=== PATIENT | female | born 1940 | race Caucasian/White ===

== ENCOUNTER 2021-01-16 18:25 | Inpatient (IN) | payer OTHER, BC ==
[~2021-01-16] VITALS: Ht 165.1 cm; Wt 88.6 kg
[2021-01-16] VITALS (7 sets, daily range): BP systolic 112–137; BP diastolic 47–62
[2021-01-16 23:15] LABS: HEMATOCRIT 34.3 % (37.0-47.0); HEMOGLOBIN 11.3 gm/dL (12.0-15.0); MCH 29.1 pg (26.0-34.0); MCHC 32.9 g/dL (28.0-37.0); MCV 88.6 fL (80.0-100.0); PLATELET COUNT 402 thou/uL (150-400); RBC 3.87 mil/uL (4.20-5.00); RDW 13.2 % (10.5-14.5); WBC 13.4 thou/uL (4.0-11.0)
[2021-01-16 23:26] LABS: CALCIUM 8.4 mg/dL (8.5-10.1); CREATININE 0.8 mg/dL (0.6-1.0); POTASSIUM 4.6 mmol/L (3.5-5.1)
[2021-01-16 23:31] LABS: ALBUMIN 1.9 g/dL (3.4-5.0); MAGNESIUM 2.4 mg/dL (1.8-2.4); TOTAL BILIRUBIN 0.5 mg/dL (0.2-1.0); TOTAL PROTEIN 6.1 g/dL (6.4-8.2)
[2021-01-16 23:32] LABS: APTT 25.9 Seconds (24.5-32.8); INR 1.01
[2021-01-16 23:54] LABS: BE(vivo) 4.2 mmol/L (-2 to +3); HCO3 27.8 mmol/L (22.0-26.0); PCO2 37.7 mmHg (35.0-45.0); pH 7.485 (7.360-7.450); sO2 92.5 % (92.0-98.0)
[2021-01-17] VITALS (43 sets, daily range): BP systolic 117–146; BP diastolic 46–75
[2021-01-17 00:16] LABS: ABSOLUTE NEUTROPHILS 12.1 thou/uL (1.4-8.2)
[2021-01-17 00:17] LABS: ANISOCYTOSIS 1+; PLATELET ESTIMATE INCREASED; POIKILOCYTOSIS 1+
[2021-01-17 05:06] LABS: ALBUMIN 1.9 g/dL (3.4-5.0); CALCIUM 8.3 mg/dL (8.5-10.1); CREATININE 0.7 mg/dL (0.6-1.0); POTASSIUM 4.3 mmol/L (3.5-5.1); TOTAL BILIRUBIN 0.5 mg/dL (0.2-1.0)
[2021-01-17 05:22] LABS: HEMATOCRIT 33.5 % (37.0-47.0); HEMOGLOBIN 11.3 gm/dL (12.0-15.0); MCH 29.7 pg (26.0-34.0); MCHC 33.7 g/dL (28.0-37.0); MCV 88.2 fL (80.0-100.0); RBC 3.8 mil/uL (4.20-5.00); RDW 12.7 % (10.5-14.5); WBC 14.4 thou/uL (4.0-11.0)
[2021-01-17 05:49] LABS: URINE BILIRUBIN NEGATIVE (Negative); URINE BLOOD NEGATIVE (Negative); URINE CLARITY CLEAR; URINE COLOR YELLOW; URINE GLUCOSE-RANDOM* NEGATIVE (Negative); URINE KETONES NEGATIVE (Negative); URINE LEUKOCYTES NEGATIVE (Negative); URINE NITRITE NEGATIVE (Negative); URINE PROTEIN (DIPSTICK) TRACE (Negative); URINE UROBILINOGEN 0.2 E.U./dl (0.2-1.0)
--- NOTE | 2021-01-17 15:43 | NUR ---
A RIGHT #6F TRIPLE LUMEN CENTRAL LINE WAS PLACED PER HOSPITAL POLICY AFTER A BEDSIDE TIMEOUT WAS COMPLETED. THE LINE WAS 25CM AND DIFFICULT TO ADVANCE. XRAY SHOWING LINE COILED. A OTW ATTEMPT WAS DONE USING STERILE TECHNIQUE AND LINE DROPED INTO THE DISTAL SVC AND NOW IN GOOD POSITION FOR USE
--- NOTE | 2021-01-17 17:07 | NUR ---
CENTRAL LINE WAS STARTED TODAY AND TPN WILL BE STARTED TONIGHT. CARDIOLOGY CONSULTED FOR AFIB AND PO CARDIZEM DOSE INCREASED. WILL CONTINUE TO ASSESS.
[2021-01-18] VITALS (31 sets, daily range): BP systolic 109–155; BP diastolic 40–75
[2021-01-18 06:32] LABS: CALCIUM 8.2 mg/dL (8.5-10.1); CREATININE 0.7 mg/dL (0.6-1.0)
[2021-01-18 09:45] LABS: MAGNESIUM 2.1 mg/dL (1.8-2.4); PHOSPHORUS 3.2 mg/dL (2.6-4.7)
--- NOTE | 2021-01-18 10:21 | NUR ---
PT'S GRANDDAUGHTER CORNELIUS CALLED AND RN GAVE PT UPDATE. YASH AND CORNELIUS TALKED ABOUT TRYING TO GET A FACETIME CALL THIS AFTERNOON BETWEEN 1-2 PM.
--- NOTE | 2021-01-18 11:46 | HC ---
[facility] [place] [address] CONSULTATION Name: ETELVINA SIERRA Room #: 237-P [facility] IN M.R.#: [id number] Admission: 01/16/21 Attend Phys: José Luis Simons MD Discharge: Date of : 44 Report #: [id number] THIS REPORT FOR: cc: FAM - Family physician unknown FAM - Family physician unknown Ubaldo Dunn MD ~ DATE OF SERVICE: 01/17/2021 INFECTIOUS DISEASE CONSULTATION ATTENDING PHYSICIAN: Dr. Keys. REASON FOR EVALUATION: COVID-19 infection complicated by pneumonitis, ARDS. HISTORY OF PRESENT ILLNESS: Chart reviewed. The patient examined. A 80-year-old woman with extensive medical history who was admitted in transfer from [facility] with a diagnosis of COVID-19 infection, this has been complicated by pneumonitis and pending requirement for ventilatory support. X-ray evidence of ARDS with hypoxemia. She is currently on BiPAP 100%, appears to be at least moderately encephalopathic, difficult to obtain additional history through the record and had apparently nausea with diarrhea as well as exacerbation of her what appears to be chronic back pain, was found to have atrial fibrillation with rapid ventricular response as well. Initial laboratory was notable for an albumin of 1.9. Lactic acid 1.9. BNP of 3300. ABGs showed a pO2 of 59 on 100% BiPAP. Urinalysis was generally unremarkable. Blood cultures collected at the time of admission are sterile thus far. Chest x-ray from other facility showed bilateral infiltrates, suspected early ARDS, so empirically started on therapy with vancomycin and cefepime as well as dexamethasone, she had received remdesivir during her roughly 10 day stay at outside hospital. ALLERGIES: None known. CURRENT MEDICATIONS: Include montelukast, atorvastatin, famotidine, cefepime, enoxaparin, vancomycin, diltiazem CD, amlodipine, losartan, ferrous sulfate, duloxetine, dexamethasone, pantoprazole, sucralfate, hydrochlorothiazide, buspirone, levothyroxine. PAST MEDICAL HISTORY: As described above, history of hypertension, reflux, depression, hypothyroidism, COPD, hyperlipidemia, osteoarthritis, iron deficiency anemia, chronic back pain, and macular degeneration. SOCIAL HISTORY: Former smoker. No ethanol, no illicit drug use. FAMILY HISTORY: Noncontributory. [facility] [address] [place] [address] CONSULTATION Name: ETELVINA SIERRA Room #: [address] [place] [address] IN [facility].#: [id number] Admission: 01/16/21 Attend Phys: José Luis Simons MD Discharge: Date of : 44 Report #: [id number] REVIEW OF SYSTEMS: Very limited due to her situation. PHYSICAL EXAMINATION: GENERAL: She appears chronically ill and undernourished. She is in moderate distress. She does arouse. She is oriented at least to person and place. VITAL SIGNS: Temperature 98.8, pulse 116, respirations 19, blood pressure 129/69. SKIN: Warm, dry, no rashes. HEENT: She has a BiPAP in place. She has a normocephalic, appears to have extraocular muscles intact. NECK: Supple. LUNGS: Scattered coarse breath sounds. HEART: Irregular, do not appreciate any murmur. ABDOMEN: Distended, firm. No peritoneal signs. EXTREMITIES: Distal lower extremities, has some edema. No cyanosis. GENITOURINARY AND RECTAL: Deferred. LABORATORY DATA: Blood cultures are negative thus far. Urinalysis unremarkable. TSH 0.032, which is low. Electrolytes: Sodium 144, potassium 4.3, chloride 107, bicarbonate is 30, anion gap of 7, BUN and creatinine 39 and 0.7, glucose of 114. AST of 18, ALT of 28, albumin 1.9. Estimated GFR of 81. CBC: White count of 14.4, H and H 11.3 and 33.5, platelets of 356. ABGs overnight pH 7.485, pCO2 of 37.7, pO2 of 59.0, 100% BiPAP. Fibrinogen 525. ProBNP of 33. Lactic acid 1.9. ASSESSMENT AND PLAN: COVID-19 infection complicated by pneumonitis, respiratory failure with early acute respiratory distress syndrome may have secondary bacterial infections well given the time course. We will continue empiric therapy with antibacterials, corticosteroids. She remains quite tenuous at this point is critically ill. The extent that she would likely require mechanical ventilatory support. She has significant disease burden, prognosis appears guarded. <ELECTRONICALLY SIGNED> By: Ubaldo Dunn MD 01/18/21 1146 0818 Ubaldo Dunn MD /nt
--- NOTE | 2021-01-18 13:37 | NUR ---
Chart review, unable to visit with pt r/t + covid and require bipap, TPN for nutrition. Cm visited with grand daughter nacho. She reported she independent, still working 40 + hours week at [employer] in [place]. Still drives, and manage own medication. If she needs rehab, granddaughter works at skilled rehab facility closer to home and the would be better, closer to home.
--- NOTE | 2021-01-18 13:48 | NUR ---
DR. CABRERA'S OFFICE CALLED PER REQUEST OF DR. MCKENZIE. DR. 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 SPOKE WITH OFFICE STAFF AT DR. CABRERA'S OFFICE AND THEY STATED THEY SPOKE WITH PHYSICIAN AND THAT IT IS OKAY TO USE FULL FACE MASK FOR BIPAP. THEY ALSO STATED THAT THE TEMPORARY LENS HAS BEEN REMOVED AND TO LEAVE THE SUTURE TO LEFT EYE LID IN PLACE.
--- NOTE | 2021-01-18 18:23 | NUR ---
PT HAS USED BIPAP TODAY WITH SMALL BREAKS OF NC FOR AM MEDS. PT TO TIRED TO TAKE AFTERNOON PO MEDS WITH USE OF NC. PT'S O2 SATS REMAIN AROUND 92% AT 70% FIO2. FREQUENT ORAL SWABS PROVIDED TO PT. PT BEGAN GETTING ANXIOUS AND NEW ORDER RECEIVED FOR PRECEDEX GTT. PRECEDEX GTT STARTED AT THIS TIME.
--- NOTE | 2021-01-18 21:33 | NUR ---
ASSUMED CARE OF PATIENT AT 1900. PATIENT REFUSES MEDICATION, ORAL CARE AND WILL NOT TALK. SHE MOANS, BUT WILL NOT SAY WHERE SHE HURTS. DAUGHTER TE CALLED THIS RN AT 2044, THIS RN EDUCATED FAMILY ON ISOLATION PROTOCOLS AND UPDATED TO WHY SHE IS IN THE ICU. FAMILY IS VERY ADAMANT THAT SHE DOES NOT NEED TO BE IN ICU, THAT SHE SHOULD BE IN THE SAME ROOM HER SIGNIFICANT OTHER ON 3W. THIS RN EXPLAINED HIPPA POLICIES. THIS RN CALLED PATIENTS SON FROM PATIENTS CELL PHONE., THEY WERE ALSO EDUCATED ABOUT ISOLATION POLICY. DAUGHTER IN LAW MELISSA VERY UPSET ABOUT ISOLATION POLICY, STATES PATIENT DOES NOT NEED TO BE IN ISOLATION. THIS RN EXPLAINED THAT HOSPITAL POLICY IS SET BY THE CDC AND ADMINISTRATION. THEY ARE VERY UNHAPPY AND DO NOT SEEM TO UNDERSTAND HOW SICK THE PATIENT IS. THIS RN LEFT THE FAMILY ON SPEAKER WITH THE PATIENT AND LET THE FAMILY KNOW THAT THIS RN WAS LEAVING THE ROOM. FAMILY WILL NEED SIGNIFICANT EDUCATION REGARDING HOSPITAL POLICY AND POC GOALS.
[2021-01-19] VITALS (53 sets, daily range): BP systolic 84–195; BP diastolic 44–154
--- NOTE | 2021-01-19 02:53 | NUR ---
ASSUMED CARE OF PATIENT AT 1900. PATIENT VERY ANXIOUS, AGITATED. PRECEDEX TITRATED FOR ANXIETY. C/O PAIN IN HEAD AND BACK. IMPULSIVE, JUMPING OUT OF BED. STATES SHE WANTS TO . EMOTIONAL SUPPORT PROVIDED. ON OPTIFLOW FOR 3 HOURS, BIPAP FOR THE REST OF THIS SHIFT. NOT PROGRESSING TOWARDS POC GOALS.
[2021-01-19 05:29] LABS: HEMATOCRIT 31.5 % (37.0-47.0); HEMOGLOBIN 10.8 gm/dL (12.0-15.0); MCH 29.9 pg (26.0-34.0); MCHC 34.4 g/dL (28.0-37.0); MCV 86.9 fL (80.0-100.0); RBC 3.63 mil/uL (4.20-5.00); RDW 12.9 % (10.5-14.5); WBC 13.1 thou/uL (4.0-11.0)
[2021-01-19 05:38] LABS: MAGNESIUM 1.8 mg/dL (1.8-2.4); PHOSPHORUS 2.5 mg/dL (2.5-4.9)
[2021-01-19 08:31] LABS: CALCIUM 8.1 mg/dL (8.5-10.1); CREATININE 0.7 mg/dL (0.6-1.0); POTASSIUM 4.3 mmol/L (3.5-5.1)
[2021-01-19 13:53] LABS: BE(vivo) -1.8 mmol/L (-2 to +3); HCO3 21.7 mmol/L (22.0-26.0); PCO2 32.9 mmHg (35.0-45.0); PO2 67.3 mmHg (80.0-100.0); pH 7.437 (7.360-7.450); sO2 94.2 % (92.0-98.0)
--- NOTE | 2021-01-19 17:02 | NUR ---
P.T. EVAL PLACED ON HOLD PER DEPT POLICY. REQUEST NEW P.T. ORDERS ONCE PT IS DEEMED TO BE ABLE TO TOLERATE THERAPEUTIC INTERVENTIONS OFF BIPAP.
--- NOTE | 2021-01-19 19:41 | NUR ---
ASSESSMENT CHARTED. PT VERY RESTLESS. PRN ANXIETY AND PAIN MED GIVEN WITH PARTIAL RELIEF. DESART WITH MOVEMENT. SEEN BY DR. MCKENZIE. ORDERS GIVEN TO INTUBATE PT. PT INTUBATED BY DR. MCKENZIE @ 0237. NEW ORDERS NOTED. REPORT PASS ON THE [facility] NURSE.
[2021-01-19 19:52] LABS: BE(vivo) -3.8 mmol/L (-2 to +3); HCO3 19.8 mmol/L (22.0-26.0); PCO2 31.3 mmHg (35.0-45.0); sO2 93.9 % (92.0-98.0)
[2021-01-20] VITALS (78 sets, daily range): BP systolic 74–165; BP diastolic 20–76
[2021-01-20 04:59] LABS: BE(vivo) -2.4 mmol/L (-2 to +3); HCO3 21.5 mmol/L (22.0-26.0); PCO2 34.4 mmHg (35.0-45.0); PO2 66.1 mmHg (80.0-100.0); pH 7.414 (7.360-7.450); sO2 93.5 % (92.0-98.0)
[2021-01-20 05:08] LABS: HEMATOCRIT 31.6 % (37.0-47.0); HEMOGLOBIN 10.7 gm/dL (12.0-15.0); MCH 29.4 pg (26.0-34.0); MCV 86.6 fL (80.0-100.0); RBC 3.65 mil/uL (4.20-5.00); RDW 12.9 % (10.5-14.5); WBC 19.4 thou/uL (4.0-11.0)
[2021-01-20 05:26] LABS: CALCIUM 7.7 mg/dL (8.5-10.1); CREATININE 0.8 mg/dL (0.6-1.0); POTASSIUM 4.3 mmol/L (3.5-5.1)
[2021-01-20 10:06] LABS: ALBUMIN 2.1 g/dL (3.4-5.0); DIRECT BILIRUBIN 0.2 mg/dL (<0.1-0.2); TOTAL BILIRUBIN 0.5 mg/dL (0.2-1.0); TOTAL PROTEIN 5.2 g/dL (6.4-8.2)
--- NOTE | 2021-01-20 10:28 | NUR ---
GRANDDAUGHTER CORNELIUS CALLED AND UPDATED ON PATIENT CONDITION. QUESTIONS ANSWERED. INFORMED OF PLAN OF CARE.
--- NOTE | 2021-01-20 13:57 | NUR ---
Chart review, discussed during los and unite rounds. + COVID. Had to be intubated yesterday evening. nutritional support. No anticipated dc, will cont following as needed for dc needs.
--- NOTE | 2021-01-20 23:56 | NUR ---
ASSUMED CARE OF PATIENT AT 1900. THIS RN CALLED GRANDDAUGHTER CORNELIUS AND UPDATED HER. THIS RN ALSO USED THE HOSPITAL PHONE ON SPEAKER SO THAT SHE COULD TALK TO HER GRANDMA. PATIENT IS EASILY AROUSABLE, COOPERATIVE AND ABLE TO HELP TURN HERSELF WELL FOLLOW ALL COMMANDS. LEVO, CARDIZEM TITRATED TO CONTROL HEARTRATE AND BLOOD PRESSURE.
[2021-01-21] VITALS (91 sets, daily range): BP systolic 86–145; BP diastolic 38–63
[2021-01-21 03:14] LABS: HEMOGLOBIN 9.6 gm/dL (12.0-15.0); MCH 29.1 pg (26.0-34.0); MCV 88.2 fL (80.0-100.0); RBC 3.29 mil/uL (4.20-5.00); RDW 12.9 % (10.5-14.5); WBC 24.3 thou/uL (4.0-11.0)
[2021-01-21 03:25] LABS: CALCIUM 7.1 mg/dL (8.5-10.1); POTASSIUM 3.7 mmol/L (3.5-5.1)
[2021-01-21 04:58] LABS: BE(vivo) -7.1 mmol/L (-2 to +3); HCO3 18.6 mmol/L (22.0-26.0); PCO2 38.2 mmHg (35.0-45.0); PO2 90.1 mmHg (80.0-100.0); pH 7.305 (7.360-7.450); sO2 96.2 % (92.0-98.0)
--- NOTE | 2021-01-21 06:29 | NUR ---
PATIENT'S SBP SOFT THIS AM, DR. WALLIS ORDERED 500CC BOLUS WHICH HELPED FOR A LITTLE WHILE. SHE WANTED TO SEE IF HOLDING OFF ON LEVOPHED WOULD HELP CONTROL BP. NOTIFIED AM BP MEDS HELD. 1058- IVF ORDERED PER DR. WALLIS. ORDER TO START TUBE FEEDS PER CLINICAL QUALITY ASSURANCE SPECIALIST- VITAL HP GOAL OF 50, WITH 250CC FREE WATER FLUSHES. PATIENT REMAINS IN A.FIB WITH SOME ELEVATION DURING THE DAY, PRN METOPROLOL GIVEN WITH SOME EFFECT, BUT ULTIMATELY CARDIZEM GTT STARTED. SEE EMAR.
--- NOTE | 2021-01-21 15:22 | NUR ---
PATIENT PRONED AT 1445. TOLERATED WELL. PATIENT REMAINS ON 70% FIO2, NEW RATE OF 22. VERSED & PROPOFOL INCREASED, SEE EMAR. PT OFF OF CARDIZEM PRIOR TO PRONING.
--- NOTE | 2021-01-21 15:33 | NUR ---
Patient's granddaughter, Annita, updated on patient condition. Notified of proning. Questions answered and notified of changing visitor policy, as of saturday.
--- NOTE | 2021-01-21 17:10 | NUR ---
Dr. Keys notified re: patient confusion, restlessness despite Precedex gtt. Does not want to add any PRN for delirium at this time. PRN Fentanyl IVP ordered.
[2021-01-21 19:31] LABS: BE(vivo) -7.2 mmol/L (-2 to +3); HCO3 19.3 mmol/L (22.0-26.0); PCO2 42.9 mmHg (35.0-45.0); sO2 95.3 % (92.0-98.0)
[2021-01-21 21:26] LABS: CALCIUM 7.3 mg/dL (8.5-10.1); CREATININE 0.9 mg/dL (0.6-1.0); POTASSIUM 3.8 mmol/L (3.5-5.1)
[2021-01-22] VITALS (83 sets, daily range): BP systolic 82–164; BP diastolic 38–64
[2021-01-22 05:06] LABS: BE(vivo) -7.5 mmol/L (-2 to +3); HCO3 19.3 mmol/L (22.0-26.0); PCO2 44.1 mmHg (35.0-45.0); PO2 73.4 mmHg (80.0-100.0); sO2 92.5 % (92.0-98.0)
[2021-01-22 05:07] LABS: pH 7.258 (7.360-7.450)
[2021-01-22 06:37] LABS: HEMATOCRIT 27.7 % (37.0-47.0); HEMOGLOBIN 9.3 gm/dL (12.0-15.0); MCH 29.6 pg (26.0-34.0); MCHC 33.5 g/dL (28.0-37.0); MCV 88.4 fL (80.0-100.0); PLATELET COUNT 284 thou/uL (150-400); RBC 3.13 mil/uL (4.20-5.00); RDW 12.7 % (10.5-14.5); WBC 21.7 thou/uL (4.0-11.0)
[2021-01-22 06:52] LABS: CALCIUM 7.2 mg/dL (8.5-10.1); CREATININE 0.8 mg/dL (0.6-1.0); POTASSIUM 3.5 mmol/L (3.5-5.1); TOTAL BILIRUBIN 0.5 mg/dL (0.2-1.0); TOTAL PROTEIN 4.8 g/dL (6.4-8.2)
[2021-01-22 07:17] LABS: ABSOLUTE NEUTROPHILS 20.8 thou/uL (1.4-8.2); PLATELET ESTIMATE NORMAL
[2021-01-22 11:05] LABS: URINE BILIRUBIN NEGATIVE (Negative); URINE BLOOD NEGATIVE (Negative); URINE CLARITY CLEAR; URINE COLOR YELLOW; URINE GLUCOSE-RANDOM* NEGATIVE (Negative); URINE KETONES NEGATIVE (Negative); URINE LEUKOCYTES-REFLEX NEGATIVE (Negative); URINE NITRITE-REFLEX NEGATIVE (Negative); URINE PROTEIN (DIPSTICK) TRACE (Negative); URINE UROBILINOGEN 0.2 E.U./dl (0.2-1.0)
--- NOTE | 2021-01-22 14:57 | NUR ---
Granddaughter Annita, updated on patient condition and plan of care.
--- NOTE | 2021-01-22 19:27 | NUR ---
ASSUMED CARE OF PATIENT AT 1900. THIS RN CALLED GRANDDAUGHTER TO UPDATE ON PATIENT. ALL QUESTIONS ANSWERED, WILL CALL HER IN THE AM BEFORE SHIFT CHANGE.
[2021-01-23] VITALS (52 sets, daily range): BP systolic 94–140; BP diastolic 33–77
[2021-01-23 05:32] LABS: HEMOGLOBIN 9.1 gm/dL (12.0-15.0); MCH 29.8 pg (26.0-34.0); MCHC 33.7 g/dL (28.0-37.0); MCV 88.5 fL (80.0-100.0); RBC 3.05 mil/uL (4.20-5.00); WBC 19.4 thou/uL (4.0-11.0)
[2021-01-23 05:59] LABS: CALCIUM 7.3 mg/dL (8.5-10.1); CREATININE 0.8 mg/dL (0.6-1.0); POTASSIUM 3.7 mmol/L (3.5-5.1)
[2021-01-23 11:31] LABS: BE(vivo) -8.7 mmol/L (-2 to +3); HCO3 17.9 mmol/L (22.0-26.0); PCO2 41.6 mmHg (35.0-45.0); sO2 79.3 % (92.0-98.0)
[2021-01-23 11:32] LABS: PO2 49.8 mmHg (80.0-100.0); pH 7.252 (7.360-7.450)
--- NOTE | 2021-01-23 12:16 | NUR ---
Dr Zacarias would prefer to bolus tube feed while proning. Recommend 3 cans vital HP during proning hours and 2 additional cans when not proning (5 cans total per day). Continue water flushes 250ml every 6 hr. vital HP cans will not be in stock until 01/24.
--- NOTE | 2021-01-23 12:34 | NUR ---
1232HR - UPDATE PT'S GRANDDAUGHTER CORNELIUS. REPORTED THAT ALL DRIPS ARE AT THE SAME SETTINGS, V/S, VENT SETTINGS, PT CONDITION, AND CHANGE IN DIET. PT RESPONDED, "THANK YOU, OK. I HAVE NOT QUESTIONS."
--- NOTE | 2021-01-23 15:24 | NUR ---
1510HRS - PT TF STOPPED 45MINS PRIOR. PRONED.
--- NOTE | 2021-01-23 16:03 | NUR ---
Chart review, discussed during LOS and unite rounds. Remains on vent. COVID +. Tube feed for nutritional support. Cm visited with her granddaughter Annita; no needs voiced. Will cont. following as needed for dc needs.
--- NOTE | 2021-01-23 21:47 | NUR ---
ASSUMED CARE OF PATIENT AT 1900. PATIENT IS PRONE. THIS RN CALLED FERNANDA THE GRANDDAUGHTER AND UPDATED ON POC. ALL QUESTIONS VERBALIZED. PATIENT REMAINS INTUBATED, SEDATED. WILL PLAN TO PUT BACK IN SUPINE POSITION AT ABOUT 0300.
[2021-01-24] VITALS (32 sets, daily range): BP systolic 89–150; BP diastolic 37–61
[2021-01-24 05:35] LABS: BE(vivo) -8.2 mmol/L (-2 to +3); HCO3 18.2 mmol/L (22.0-26.0); PCO2 40.8 mmHg (35.0-45.0); PO2 60.3 mmHg (80.0-100.0); sO2 87.7 % (92.0-98.0)
[2021-01-24 05:37] LABS: pH 7.267 (7.360-7.450)
[2021-01-24 05:48] LABS: HEMATOCRIT 27.2 % (37.0-47.0); HEMOGLOBIN 9.3 gm/dL (12.0-15.0); MCH 30.1 pg (26.0-34.0); MCHC 34.3 g/dL (28.0-37.0); MCV 87.8 fL (80.0-100.0); RBC 3.1 mil/uL (4.20-5.00); RDW 13.5 % (10.5-14.5); WBC 17.1 thou/uL (4.0-11.0)
[2021-01-24 06:19] LABS: CALCIUM 7.7 mg/dL (8.5-10.1); CREATININE 0.9 mg/dL (0.6-1.0); POTASSIUM 3.8 mmol/L (3.5-5.1)
--- NOTE | 2021-01-24 12:35 | NUR ---
1235HRS - CONTACTED CORNELIUS (FAMILY MEMBER). UPDATED HER ON PT'S STATUS AND CONDITION. INFORMED HER OF THE NEXT GOAL FOR THE PT TO HAVE A BM AND TF ARE TURNED OFF.
--- NOTE | 2021-01-24 15:37 | NUR ---
1530HRS - PT PRONE. TF OFF @ THIS TIME.
[2021-01-25] VITALS (22 sets, daily range): BP systolic 97–139; BP diastolic 44–72
--- NOTE | 2021-01-25 09:48 | NUR ---
change tube feed back to continuous goal of 50ml/hr. Do not turn off while proning. 250ml water flushes every 6hr
--- NOTE | 2021-01-25 18:26 | NUR ---
ASSUMED CARE OF PT AT 0700 PT IS STILL ON 14 OF PEEP BUT WAS ABLE TO COME DOWN ON FIO2, SO SHE MADE A STEP IN THE RIGHT DIRECTION. PT WAS PRONED AT 1615 AND TOLERATED IT WELL.
[2021-01-26] VITALS (60 sets, daily range): BP systolic 110–162; BP diastolic 44–74
--- NOTE | 2021-01-26 14:27 | NUR ---
ASSUMED CARE OF PT AT 0700 DR. OBANDO AT BEDSIDE AT 0830, ORDERS TO LOWER PEEP TO 10 GIVEN. PT NOT PRONED DUE TO INADEQUATE STAFF TO DO SO. WILL ATTEMPT TO PRONE AT SHIFT CHANGE WHEN THERE IS MORE STAFF AVAILABLE.
[2021-01-26 17:03] LABS: HEMATOCRIT 26.5 % (37.0-47.0); HEMOGLOBIN 8.9 gm/dL (12.0-15.0); MCH 29.6 pg (26.0-34.0); MCHC 33.6 g/dL (28.0-37.0); MCV 88.1 fL (80.0-100.0); RBC 3.01 mil/uL (4.20-5.00); RDW 13.4 % (10.5-14.5); WBC 10.9 thou/uL (4.0-11.0)
[2021-01-26 17:17] LABS: CALCIUM 7.7 mg/dL (8.5-10.1); POTASSIUM 3.3 mmol/L (3.5-5.1)
[2021-01-27] VITALS (98 sets, daily range): BP systolic 79–164; BP diastolic 35–82
[2021-01-27 04:17] LABS: CALCIUM 7.7 mg/dL (8.5-10.1); POTASSIUM 3.5 mmol/L (3.5-5.1)
--- NOTE | 2021-01-27 04:48 | NUR ---
ASSUMED CARE OF PATIENT AT 2200. SETTINGS WERE PC 20/PIP 30/.40 +10. PATIENT WAS CHECKED EVERY 4 HOURS PER COVID PROTOCOL. SEDATED AND SHOWING NO SIGNS OF DISTRESS AT THIS TIME.
--- NOTE | 2021-01-27 11:27 | NUR ---
Called Annita, patient's granddaughter, for an update. did not picker feeder at this time.
--- NOTE | 2021-01-27 15:02 | NUR ---
Discussed during am unite rounds, cont. to wear face mask and shield during rounds. Discussed during LOS. COVID +, vent, wean trials, and nutritional support. No anticipated dc over the weekend. Will cont. following as needed for dc needs.
--- NOTE | 2021-01-27 17:15 | NUR ---
Patient tolerating prone positioning well. Continues to be on pressure support at FI02 40% with decreased PEEP of 8.
[2021-01-28] VITALS (87 sets, daily range): BP systolic 84–148; BP diastolic 38–72
--- NOTE | 2021-01-28 01:10 | NUR ---
Pt supined at this time and turned to her right side. Thomas heels offloaded
--- NOTE | 2021-01-28 06:30 | NUR ---
Pt proned until 0110. CHG bath given during turn to supine. Pt tolerated turn well. R.T at bedside for vent checks and re-securing ETT. Pt afebrile. Monitor showing controlled afib. Sedated with propofol, versed and fentanyl gtts. Maintained moderated sedation. Central line and newton intact. Adequate urine output. No BM. Blood sugars checked Q 6 hours. No insulin required. Tube feeding advanced to max goal of 50ml/hr. Tolerating TF well. Max residual 50ml. Tolerating vent settings. Maintained oxygen sats > 90%. No further issues to report.
[2021-01-28 12:28] LABS: ALBUMIN 1.7 g/dL (3.4-5.0); CALCIUM 7.6 mg/dL (8.5-10.1); PHOSPHORUS 1.6 mg/dL (2.6-4.7); POTASSIUM 3.1 mmol/L (3.5-5.1); TOTAL BILIRUBIN 0.3 mg/dL (0.2-1.0); TOTAL PROTEIN 3.9 g/dL (6.4-8.2)
[2021-01-28 12:33] LABS: HEMATOCRIT 26.9 % (37.0-47.0); HEMOGLOBIN 9.3 gm/dL (12.0-15.0); MCH 30.4 pg (26.0-34.0); MCHC 34.3 g/dL (28.0-37.0); MCV 88.4 fL (80.0-100.0); RBC 3.05 mil/uL (4.20-5.00); RDW 13.6 % (10.5-14.5); WBC 10.4 thou/uL (4.0-11.0)
[2021-01-28 12:51] LABS: BE(vivo) -3.5 mmol/L (-2 to +3); PCO2 35.7 mmHg (35.0-45.0); PO2 66.9 mmHg (80.0-100.0); pH 7.387 (7.360-7.450); sO2 93.3 % (92.0-98.0)
--- NOTE | 2021-01-28 17:16 | NUR ---
ASSUMED CARE OF PATIENT AT 0600. PATIENT WAS ON RATE 20/ PRESSURE 30/ .40 +8 PATIENT SHOWED NO SIGNS OF DISTRESS TODAY AND RESTED COMFORTABLY. PRONING WAS NOT DONE DUE TO STAFFING.
--- NOTE | 2021-01-28 21:18 | NUR ---
FFP x 2 doses for ICU initiated at this time. Will recheck INR level after completion of infusions.
[2021-01-29] VITALS (49 sets, daily range): BP systolic 83–135; BP diastolic 39–60
--- NOTE | 2021-01-29 01:09 | NUR ---
CALL TO DR OBANDO REGARDING CLARIFICATION OF ORDER TO PRONE PT, PT WAS NOT PRONED DURING THE DAY ON NORMAL SCHEDULE. WAS INFORMED THAT PT SHOULD BE PRONED BUT MAY WAIT UNTIL TOMOROW SO THAT PT CAN BE SUPINE DURING AM CXR.
[2021-01-29 04:04] LABS: HEMATOCRIT 22.8 % (37.0-47.0); HEMOGLOBIN 7.7 gm/dL (12.0-15.0); MCH 30.5 pg (26.0-34.0); MCV 89.9 fL (80.0-100.0); PLATELET COUNT 117 thou/uL (150-400); RBC 2.53 mil/uL (4.20-5.00); RDW 13.8 % (10.5-14.5); WBC 8.1 thou/uL (4.0-11.0)
[2021-01-29 04:18] LABS: CALCIUM 7.2 mg/dL (8.5-10.1); CREATININE 1.1 mg/dL (0.6-1.0)
[2021-01-29 04:27] LABS: BE(vivo) -4.7 mmol/L (-2 to +3); HCO3 20.2 mmol/L (22.0-26.0); PCO2 36.7 mmHg (35.0-45.0); pH 7.359 (7.360-7.450); sO2 90.3 % (92.0-98.0)
[2021-01-29 11:13] LABS: ABSOLUTE NEUTROPHILS 6.6 thou/uL (1.4-8.2); NUCLEATED RBCS 1 /100WBC
[2021-01-29 11:14] LABS: ANISOCYTOSIS SLIGHT; METAMYELOCYTES 2 %
--- NOTE | 2021-01-29 17:03 | NUR ---
ASSUMED CARE OF PATIENT AT 0600. SETTINGS ON THE VENTILATOR WERE RATE OF 20 PRESSURE 30 40% +8. THE PATIENT REMAINED ON THESE SETTINGS THE DURATION OF MY SHIFT. VENTILATOR CHECKS AND BREATHING TREATMENTS WERE DONE ACCORDING TO SCHEDULE. NO DISTRESS NOTED.
[2021-01-30] VITALS (54 sets, daily range): BP systolic 94–144; BP diastolic 34–66
--- NOTE | 2021-01-30 05:02 | NUR ---
PT REMAINS ON 40 % FIO2 WITH SEDATION FOR VENT MANAGMENT, PT WILL OPEN RIGHT EYE AND FOLLOW COMANDS WHEN SEDATION IS LIGHT. LEFT EYE HAS STITCHES AND WILL NOT OPEN. PT REMIANS IN RATE CONTROLLED AFIB, ON AMIODERONE GTT. OG TUBE REMAINS JEIMY MEDICATION ADMINISTRATION, TUBE FEEDING OFF FOR GI BLEED. PT HAD ONE SMALL TO MODERATE BLACK SOFT BM THIS SHIFT. PATIENT HAS GENRALIZED EDEMA WITH BILAT UPPER EXTREMITIES WEEPING.
[2021-01-30 05:18] LABS: HEMATOCRIT 22.3 % (37.0-47.0); HEMOGLOBIN 7.5 gm/dL (12.0-15.0); MCH 30.3 pg (26.0-34.0); MCHC 33.8 g/dL (28.0-37.0); MCV 89.8 fL (80.0-100.0); RBC 2.49 mil/uL (4.20-5.00); RDW 14.4 % (10.5-14.5); WBC 6.4 thou/uL (4.0-11.0)
[2021-01-30 05:28] LABS: CALCIUM 7.1 mg/dL (8.5-10.1); CREATININE 1.1 mg/dL (0.6-1.0); POTASSIUM 3.5 mmol/L (3.5-5.1)
--- NOTE | 2021-01-30 15:15 | NUR ---
1515HRS - EGD ARRIVED
--- NOTE | 2021-01-30 15:35 | NUR ---
1532HRS - EDG STARTED. PREFROMED BY DR. Marcia KOTHARI
--- NOTE | 2021-01-30 15:38 | NUR ---
1538HRS. - EGD COMPLETED.
[2021-01-30 15:59] LABS: % SATURATION 27 % (20-39); IRON 47 ug/dL (50-170); TIBC 176 ug/dL (250-450)
--- NOTE | 2021-01-30 16:05 | NUR ---
Chart review, COVID + discussed during los. Enhanced Isolation. GI consulted. Remains on vent, tube feed for nutritional support.
[2021-01-31] VITALS (69 sets, daily range): BP systolic 89–149; BP diastolic 35–69
[2021-01-31 04:31] LABS: BE(vivo) -4.4 mmol/L (-2 to +3); HCO3 20.2 mmol/L (22.0-26.0); PO2 72.3 mmHg (80.0-100.0); pH 7.379 (7.360-7.450); sO2 94.4 % (92.0-98.0)
[2021-01-31 04:58] LABS: ABSOLUTE NEUTROPHILS 4.6 thou/uL (1.4-8.2); EOSINOPHILS 6.7 % (0.0-3.0); HEMATOCRIT 23.8 % (37.0-47.0); LYMPHOCYTES 7.3 % (24.0-44.0); MCH 30.2 pg (26.0-34.0); MCHC 33.7 g/dL (28.0-37.0); MCV 89.9 fL (80.0-100.0); MONOCYTES 4.5 % (1.0-8.0); PLATELET COUNT 105 thou/uL (150-400); POLYS 80.5 % (36.0-66.0); RBC 2.65 mil/uL (4.20-5.00); WBC 5.7 thou/uL (4.0-11.0)
[2021-01-31 07:09] LABS: CALCIUM 7.3 mg/dL (8.5-10.1); CREATININE 1.1 mg/dL (0.6-1.0); POTASSIUM 3.4 mmol/L (3.5-5.1); TOTAL BILIRUBIN 0.4 mg/dL (0.2-1.0); TOTAL PROTEIN 4.4 g/dL (6.4-8.2)
--- NOTE | 2021-01-31 08:31 | NUR ---
02/27/2021 1935HRS - CONTACTED Ambreen (GRAND-DAUGHTER) TO INFORM OF EGD RESULTS. GASTRIC EROSION & HIATAL HERNIA.
--- NOTE | 2021-01-31 14:58 | O ---
[facility] [place] [address] [place] [address] OPERATIVE REPORT Name: ETELVINA SIERRA Room #: 237-P [facility] IN .R.#: [id number] Admission: 01/16/21 Attend Phys: José Luis Simons MD Discharge: Date of : 44 Report #: [id number] THIS REPORT FOR: cc: FAM - Family physician unknown FAM - Family physician unknown Vahe Moore MD ~ DATE OF SERVICE: 01/30/2021 TIME: 1530. PROCEDURE: Upper endoscopy. ANESTHESIA: Propofol was used for sedation as the patient is intubated and sedated on the ventilator. INDICATION: Melena and anemia. A 80-year-old COVID positive patient with respiratory failure with melena and anemia. DESCRIPTION OF PROCEDURE: The upper adult endoscope was introduced through the mouth to the second portion of the duodenum, then withdrawn carefully. On careful inspection, the esophagus appeared normal. There is a small hiatal hernia and there were three gastric erosions in the antrum that were not bleeding. The duodenum was normal. Recommendations are to avoid NSAIDs. Continue the PPI. Monitor hemoglobin and hematocrit, transfuse as needed and replace the OG that was removed at the beginning of the procedure. <ELECTRONICALLY SIGNED> By: Vahe Moore MD 01/31/21 1458 1446 1759 Vahe Moore MD /nt
--- NOTE | 2021-01-31 17:18 | NUR ---
1515HRS - PT'S GRANDDAUGHTER (CORNELIUS) CALLED. INFORMED AND UPDATED HER ON THE STATUS OF PT.
[2021-02-01] VITALS (55 sets, daily range): BP systolic 95–146; BP diastolic 42–99
[2021-02-01 04:51] LABS: BE(vivo) -4.3 mmol/L (-2 to +3); HCO3 20.6 mmol/L (22.0-26.0); PCO2 36.8 mmHg (35.0-45.0); pH 7.365 (7.360-7.450); sO2 95.9 % (92.0-98.0)
[2021-02-01 04:57] LABS: HEMATOCRIT 23.3 % (37.0-47.0); HEMOGLOBIN 7.8 gm/dL (12.0-15.0); MCH 30.2 pg (26.0-34.0); MCHC 33.5 g/dL (28.0-37.0); MCV 90.1 fL (80.0-100.0); RBC 2.59 mil/uL (4.20-5.00); WBC 6.1 thou/uL (4.0-11.0)
[2021-02-01 04:59] LABS: CALCIUM 7.1 mg/dL (8.5-10.1); CREATININE 1.3 mg/dL (0.6-1.0); POTASSIUM 3.1 mmol/L (3.5-5.1)
--- NOTE | 2021-02-01 12:40 | NUR ---
PATIENT'S GRANDDAUGHTER, CORNELIUS, CALLED FROM [phone] AND SHE WAS UPDATED AND EDUCATED ON THE PATIENT'S CONDITION AND PLAN OF CARE.
[2021-02-01 15:51] LABS: INR 0.95; PROTIME 10.4 Seconds (10.5-12.1)
[2021-02-02] VITALS (50 sets, daily range): BP systolic 70–153; BP diastolic 31–91
[2021-02-02 05:28] LABS: HEMATOCRIT 26.2 % (37.0-47.0); HEMOGLOBIN 8.9 gm/dL (12.0-15.0); MCH 30.1 pg (26.0-34.0); MCHC 33.8 g/dL (28.0-37.0); RBC 2.95 mil/uL (4.20-5.00); RDW 15.9 % (10.5-14.5); WBC 7.8 thou/uL (4.0-11.0)
[2021-02-02 05:36] LABS: CALCIUM 7.7 mg/dL (8.5-10.1); CREATININE 1.3 mg/dL (0.6-1.0)
[2021-02-02 05:38] LABS: POTASSIUM 2.9 mmol/L (3.5-5.1)
[2021-02-02 12:06] LABS: BE(vivo) -3.6 mmol/L (-2 to +3); HCO3 22.6 mmol/L (22.0-26.0); PCO2 45.5 mmHg (35.0-45.0); PO2 59.9 mmHg (80.0-100.0); pH 7.313 (7.360-7.450); sO2 88.7 % (92.0-98.0)
[2021-02-02 13:47] LABS: CALCIUM 7.4 mg/dL (8.5-10.1); CREATININE 1.3 mg/dL (0.6-1.0); POTASSIUM 3.7 mmol/L (3.5-5.1)
--- NOTE | 2021-02-02 17:35 | NUR ---
PATIENT RECIEVES RIGHT CHEST TUBE TODAY PLACED BY DR MCKENZIE. 28F PATIENT REQUIRING MARIAN AMOUNTS OF FIO2. CURRENTLY 60% ON VENTILATOR. 540ML OUT OF CHEST TUBE TODAY. DR TINSLEY SAW PATIENT TODAY. FURTHER PLANS FOR TRACH AND PEG PLACEMENT. FENTANYL AND VERSED CONTINUE FOR SEDATION MANAGEMENT. TOLERATING TUBE FEEDINGS.
--- NOTE | 2021-02-02 20:15 | NUR ---
SPOKE WITH GRANDDAUGHTER CORNELIUS ON TELEPHONE. UPDATE PROVIDED FOR CURRENT HEALTH STATUS, INTERVENTIONS AND PLAN OF CARE
[2021-02-03] VITALS (180 sets, daily range): BP systolic 66–149; BP diastolic 31–88
[2021-02-03 01:19] LABS: MCH 30.9 pg (26.0-34.0); MCHC 34.4 g/dL (28.0-37.0); MCV 89.7 fL (80.0-100.0); RBC 1.99 mil/uL (4.20-5.00); RDW 16.4 % (10.5-14.5); WBC 6.7 thou/uL (4.0-11.0)
[2021-02-03 01:21] LABS: HEMATOCRIT 17.8 % (37.0-47.0); HEMOGLOBIN 6.1 gm/dL (12.0-15.0)
--- NOTE | 2021-02-03 01:55 | NUR ---
TELEPHONE CONSENT OBTAINED FROM GRAND DAUGHTER (CORNELIUS ENAMORADO) FOR BLOOD PRODUCT ADMINISTRATION. HGB 6.1. ORDER TO TRANSFUSE 1 UNIT PRBC REC'D.
[2021-02-03 05:45] LABS: HEMATOCRIT 22.3 % (37.0-47.0); HEMOGLOBIN 7.6 gm/dL (12.0-15.0); MCH 29.4 pg (26.0-34.0); MCV 86.5 fL (80.0-100.0); RBC 2.57 mil/uL (4.20-5.00); WBC 7.4 thou/uL (4.0-11.0)
[2021-02-03 06:24] LABS: CALCIUM 7.2 mg/dL (8.5-10.1); CREATININE 1.4 mg/dL (0.6-1.0); POTASSIUM 3.6 mmol/L (3.5-5.1)
--- NOTE | 2021-02-03 06:30 | NUR ---
PT REMAINED STABLE ENTIRE SHIFT. PRBC COMPLETED. REPEAT HGB 7.6. AFEBRILE. MONITOR SHOWING CONTROLLED AFIB. TOLERATING VENT PER SETTINGS. FI02 60% ENTIRE SHIFT. SEDATION INCLUDES VERSED AND FENTANYL. NO APPARENT PAIN. RESTING WELL. RODRÍGUEZ AND CENTRAL LINE INTACT. DRAINAGE FROM CHEST TUBE DECREASED TOWARDS END OF SHIFT. TOLERATED TUBE FEEDING. MINIMAL RESIDUALS. NO BM. ADEQUATE URINE OUTPUT.
--- NOTE | 2021-02-03 07:20 | NUR ---
REPORT GIVEN TO ONCOMING RN
[2021-02-03 11:09] LABS: PO2 63.3 mmHg (80.0-100.0); pH 7.134 (7.360-7.450); sO2 83.9 % (92.0-98.0)
[2021-02-03 11:16] LABS: HEMATOCRIT 20.3 % (37.0-47.0); HEMOGLOBIN 6.8 gm/dL (12.0-15.0)
[2021-02-03 11:17] LABS: MCH 29.6 pg (26.0-34.0); MCHC 33.6 g/dL (28.0-37.0); MCV 88.1 fL (80.0-100.0); RBC 2.31 mil/uL (4.20-5.00); RDW 17.7 % (10.5-14.5); WBC 10.3 thou/uL (4.0-11.0)
--- NOTE | 2021-02-03 14:06 | NUR ---
Chart review. COVID +. Discussed during los and unite rounds. Vent, chest tube, and nutritional support. possible will need trach and peg, surgery consulted. Will cont following as needed for dc needs.
[2021-02-03 14:16] LABS: BE(vivo) -4.9 mmol/L (-2 to +3); HCO3 22.6 mmol/L (22.0-26.0); PCO2 57.8 mmHg (35.0-45.0); PO2 66.6 mmHg (80.0-100.0); sO2 88.6 % (92.0-98.0)
[2021-02-03 19:49] LABS: HEMATOCRIT 23.4 % (37.0-47.0); HEMOGLOBIN 8.2 gm/dL (12.0-15.0); MCH 31.1 pg (26.0-34.0); MCV 88.9 fL (80.0-100.0); RBC 2.63 mil/uL (4.20-5.00); RDW 16.7 % (10.5-14.5)
[2021-02-03 19:53] LABS: CALCIUM 6.5 mg/dL (8.5-10.1); CREATININE 1.7 mg/dL (0.6-1.0); POTASSIUM 3.7 mmol/L (3.5-5.1)
[2021-02-03 20:01] LABS: ALBUMIN 1.6 g/dL (3.4-5.0); TOTAL BILIRUBIN 0.4 mg/dL (0.2-1.0); TOTAL PROTEIN 3.6 g/dL (6.4-8.2)
--- NOTE | 2021-02-03 20:52 | NUR ---
0700:HANDOFF, PT CONTD TO DESAT, INCREASED O2, REPOSITIONED, CHECKED CHEST TUBE TO SXN, 50 MLS OUTPUT, CLOT OBSERVED WITH SEROSANG FL ABOVE CLOT IN TUBING, CLOT REMOVED, 20 MLS OUTPUT. DRESSING SATURATED, REPLACED DRESSING. MULT ATTEMPTS AT REPOSITIONING PATIENT, PT CONTD TO DESAT, DR MCKENZIE NOTIFIED, CXR TAKEN, CBC DRAWN, O2 TO 100%, SEDATION PAUSED, LEVOPHED STARTED, TUBE FEED STOPPED AND HOOKED UP TO SXN. 1000 MLS OUT. HGB RESULTED 6.7, 1 UNIT PRBCS ORDERED AND TRANSFUSED, PT STABILIZED, LIGHT SEDATION RESUMED, STAT CT ORDERED, 2 LARGE LOOSE BLACK BMS, PT TAKEN TO CT AND RETURNED WITHOUT COMPLICATION, FSBS 68, REPEAT 68, REPEAT, AND GIVEN D50. 1500: CORNELIUS UPDATED 1900: HANDOFF 2000: CORNELIUS UPDATED 2030: CORNELIUS UPDATED RE NEW CHEST TUBE BEING PLACED.
--- NOTE | 2021-02-03 20:54 | NUR ---
DR. MACHUCA AT BEDSIDE TO PLACE NEW CHEST TUBE. TUBE PLACED W/O DIFFICULTY UNDER STERILE PROCEDURE. 900ML OF BLOODY DRAINAGE RETURNED AFTER INSERTION. VS REMAINED STABLE. LEVOPHED TITRATED UP TO MAINTAIN MAP OF 60 OR GREATER. OLD CHEST TUBE INTACT WELL. WILL ORDER CXR TO CONFIRM PLACEMENT
--- NOTE | 2021-02-03 21:14 | NUR ---
CXR COMPLETED. DR. MACHUCA AT BEDSIDE TO READ RESULTS. PT STABLE. VSS. OXYGENATION 97% ON FI02 90%. WILL CONTINUE TO MONITOR CHEST TUBE DRAINAGE
[2021-02-03 22:40] LABS: HEMATOCRIT 23.8 % (37.0-47.0); HEMOGLOBIN 8.3 gm/dL (12.0-15.0); MCH 30.7 pg (26.0-34.0); MCHC 34.7 g/dL (28.0-37.0); MCV 88.5 fL (80.0-100.0); RBC 2.69 mil/uL (4.20-5.00); RDW 16.8 % (10.5-14.5); WBC 10.7 thou/uL (4.0-11.0)
[2021-02-04] VITALS (240 sets, daily range): BP systolic 68–144; BP diastolic 33–68
[2021-02-04 05:21] LABS: CALCIUM 6.7 mg/dL (8.5-10.1); CREATININE 1.9 mg/dL (0.6-1.0); POTASSIUM 4.2 mmol/L (3.5-5.1)
[2021-02-04 05:27] LABS: HEMOGLOBIN 6.9 gm/dL (12.0-15.0)
[2021-02-04 05:29] LABS: MCHC 35.2 g/dL (28.0-37.0); MCV 88.2 fL (80.0-100.0); RBC 2.22 mil/uL (4.20-5.00); RDW 16.6 % (10.5-14.5); WBC 9.9 thou/uL (4.0-11.0)
[2021-02-04 05:34] LABS: HEMATOCRIT 19.5 % (37.0-47.0)
--- NOTE | 2021-02-04 06:30 | NUR ---
PT HEMODYNAMICALLY UNSTABLE MOST OF THE SHIFT. TITRATED LEVOPHED UP TO OBTAIN MAP > 60. CHEST TUBE X2 INTACT. 1300ML OF DRAINAGE NOTED. 200ML FROM OGT. CENTRAL LINE DRESSING CHANGED. BLOOD SUGARS OBTAINED. NO COVERAGE NEEDED. AM LABS DRAWN AND SENT. HGB 6.9. ORDER REC'D TO TRANSFUSE 1 UNIT PRBC. ADEQUATE URINE OUTPUT. NO BM. AFEBRILE. AFIB ON MONITOR
--- NOTE | 2021-02-04 07:15 | NUR ---
REPORT GIVEN TO ONCOMING RN
[2021-02-04 08:06] LABS: MAGNESIUM 2.2 mg/dL (1.8-2.4); PHOSPHORUS 5.6 mg/dL (2.5-4.9)
--- NOTE | 2021-02-04 12:17 | EKG ---
[address] [address] ELECTROCARDIOGRAM REPORT Name: SIERRAETELVINA Room #: 237- ADM IN M.R.#: [id number] Admission: 01/16/21 Attend Phys: José Luis Simons MD Discharge: Date of : 44 Report #: [id number] [facility] Test Date: 2021-02-03 Test Time: 12:36:50 Pat Name: ETELVINA SIERRA Department: Room: 237 P Gender: F Food Editor: SHIMON : 1940 Requested By: Nata Antonio Order Number: [id number] MD: Marco Beach Measurements Intervals [place] Rate: 111 P: 126 PA: 128 QRS: 92 QRSD: 101 T: 31 QT: 402 QTc: 547 Interpretive Statements Atrial fibrillation Noprevious ECG available for comparison Electronically Signed On 02-04-2021 12:17:20 CDT by Marco Beach [email or web address] <ELECTRONICALLY SIGNED> By: Marco Beach MD 02/04/21 1217 1236 1236 MD GARCIA Mendenhall
--- NOTE | 2021-02-04 20:25 | NUR ---
1200: PT DAUGHTER AND GRANDDAUGHTER CAME TO VISIT AND EVALUATE POTENTIAL FOR COMFORT CARE. TEARFUL AND HESITANT TO MAKE A CALL, WANTING HER TO FIGHT BC PT HAD STATED SHE WANTED TO FIGHT THIS WHEN SHE WAS INITIALLY ADMITED FOR COVID, THEY WERE UNSURE WHAT TO DO. FAM VISITED WITH PT AND SHE WAS ABLE TO HEAR GRANDCHILDREN ON THE PHONE. THEY ASKED WHAT I WOULD DO IF THIS WAS MY LOVED ONE, I TOLD THEM SHE FOLLOWS COMMANDS, AND CAN COMMUNICATE, I WOULD ASK HER YES OR NO QUESTIONS AND SEE HOW SHE FELT ABOUT IT, OR WHAT SHE WANTED TO DO. WAS MADE CLEAR THAT PT WANTS TO CONTINUE TO FIGHT AND NOT BE PUT ON COMFORT CARE AT THIS TIME WITH THE CURRENT STATUS. DISCUSSED WITH FAMILY IF STATUS CHANGES WE COULD ALWAYS REVISIT THE TOPIC. FAMILY WAS HAPPY THEY DIDNT HAVE TO MAKE A CALL AND COULD CARRY OUT HER WISHES AT THIS TIME.
[2021-02-04 21:57] LABS: HEMOGLOBIN 7.6 gm/dL (12.0-15.0)
--- NOTE | 2021-02-04 22:02 | NUR ---
ASSUMED CARE AT 2100. SATS DROPPING TO MID 80'S, TURNED FIO2 UP TO 100%, SAT PT UP MORE, ATTEMPTED TO SUCTION. ASKED RT TO COME CHECK PT OVER. RT SPOKE W/DR. MCKENZIE, HE SAID TO LEAVE VENT SETTINGS THE SAME AND JUST MONITOR O2 LEVEL.
[2021-02-05] VITALS (41 sets, daily range): BP systolic 71–151; BP diastolic 20–58
[2021-02-05 05:56] LABS: RBC 2.19 mil/uL (4.20-5.00); WBC 9.4 thou/uL (4.0-11.0)
[2021-02-05 05:58] LABS: HEMOGLOBIN 6.7 gm/dL (12.0-15.0); MCH 30.5 pg (26.0-34.0); MCHC 35.6 g/dL (28.0-37.0); MCV 85.6 fL (80.0-100.0); RDW 15.9 % (10.5-14.5)
[2021-02-05 06:09] LABS: HEMATOCRIT 18.7 % (37.0-47.0)
[2021-02-05 06:13] LABS: CALCIUM 6.7 mg/dL (8.5-10.1); CREATININE 2.2 mg/dL (0.6-1.0); POTASSIUM 4.1 mmol/L (3.5-5.1)
--- NOTE | 2021-02-05 08:49 | NUR ---
ASSUMED CARE AT 1900. PT w/SOFT BP, INCREASING LEVOPHED; STOPPED PROPOFOL PART OF THE NIGHT. SPOKE TO DR. MCKENZIE AT 2200, RECEIVED ORDER FOR 1L NS BOLUS AND ADDITIONAL VASOPRESSORS. 0200-CHANGED CHEST TUBE ATRIUM AND DRESSING. LOW URINE OUTPUT OVERNIGHT. CRITICAL HCT THIS AM, SPOKE W/DR. MCKENZIE, RECEIVED ORDER FOR ANOTHER UNIT OF BLOOD TO BE GIVEN. POOR PROGRESSION TOWARDS GOALS.
--- NOTE | 2021-02-05 15:45 | NUR ---
ASSUMED CARE OF PATIENT AT 0600. I FOUND THE PATIENT ON THE SETTINGS OF 20/ PRESSURE 30/ .65 +12. NOTHING WAS CHANGED DURING THE SHIFT, NO SIGNS OF DISTRESS.
[2021-02-06] VITALS (54 sets, daily range): BP systolic 84–130; BP diastolic 32–67
[2021-02-06 04:45] LABS: BE(vivo) -6.7 mmol/L (-2 to +3); HCO3 18.4 mmol/L (22.0-26.0); PCO2 35.2 mmHg (35.0-45.0); PO2 106.8 mmHg (80.0-100.0); pH 7.337 (7.360-7.450); sO2 97.6 % (92.0-98.0)
[2021-02-06 05:41] LABS: HEMATOCRIT 20.5 % (37.0-47.0); HEMOGLOBIN 7.3 gm/dL (12.0-15.0); MCH 31.5 pg (26.0-34.0); MCHC 35.6 g/dL (28.0-37.0); MCV 88.5 fL (80.0-100.0); RBC 2.32 mil/uL (4.20-5.00); RDW 15.7 % (10.5-14.5); WBC 8.5 thou/uL (4.0-11.0)
[2021-02-06 06:05] LABS: CALCIUM 6.9 mg/dL (8.5-10.1); CREATININE 2.6 mg/dL (0.6-1.0); POTASSIUM 4.1 mmol/L (3.5-5.1)
--- NOTE | 2021-02-06 07:53 | NUR ---
ASSUMED CARE AT 1900. 2104-SPOKE TO DR. HOYT REGARDING BLOOD CULTURES, STATED ONLY BLOOD CULTURE FROM LINE WAS ACCEPTABLE SINCE PERIPHERAL STICKS WERE JUST SEROSANGINOUS FLUID. CHEST TUBES IN GOOD POSITION, NOT LEAKING AROUND INSERTION POINT, SLIGHTLY LESS OUTPUT THAT PRIOR SHIFT. AT 0450, RT DECREASED FIO2 TO 50%. SLOW PROGRESSION TOWARDS GOALS.
--- NOTE | 2021-02-06 15:35 | NUR ---
Chart review. Discussed during los. Vent, nutritional support. Chest tube. Hospitalist spoke with granddaughter over the past weekend. Will cont following as needed for dc needs.
[2021-02-07] VITALS (59 sets, daily range): BP systolic 79–136; BP diastolic 5–67
[2021-02-07 05:00] LABS: BE(vivo) -6.6 mmol/L (-2 to +3); PCO2 38.2 mmHg (35.0-45.0); PO2 64.4 mmHg (80.0-100.0); sO2 90.9 % (92.0-98.0)
[2021-02-07 05:01] LABS: pH 7.314 (7.360-7.450)
[2021-02-07 05:16] LABS: LYMPHOCYTES 2.3 % (24.0-44.0)
[2021-02-07 05:24] LABS: BASOPHILS 0.1 % (0.0-2.0); EOSINOPHILS 0.1 % (0.0-3.0); MCH 31.8 pg (26.0-34.0); MCHC 35.8 g/dL (28.0-37.0); MCV 88.9 fL (80.0-100.0); MONOCYTES 2.2 % (1.0-8.0); PLATELET COUNT 134 thou/uL (150-400); POLYS 95.3 % (36.0-66.0); RBC 2.14 mil/uL (4.20-5.00); RDW 15.8 % (10.5-14.5); WBC 9.4 thou/uL (4.0-11.0)
[2021-02-07 05:28] LABS: HEMOGLOBIN 6.8 gm/dL (12.0-15.0)
[2021-02-07 06:30] LABS: ALBUMIN 1.5 g/dL (3.4-5.0); CALCIUM 7.2 mg/dL (8.5-10.1); CREATININE 2.9 mg/dL (0.6-1.0); POTASSIUM 4.6 mmol/L (3.5-5.1); TOTAL BILIRUBIN 0.5 mg/dL (0.2-1.0); TOTAL PROTEIN 3.9 g/dL (6.4-8.2)
--- NOTE | 2021-02-07 10:31 | NUR ---
Spoke to Annita, patient's granddaughter, and updated her on patient condition and plan of care.
[2021-02-07 12:25] LABS: HEMATOCRIT 23.5 % (37.0-47.0); HEMOGLOBIN 8.2 gm/dL (12.0-15.0)
--- NOTE | 2021-02-07 18:02 | NUR ---
Patient tolerating vent settings well. had to increase FiO2 due to desaturations. Currently O2 stable on current settings. Annita called and updated on patient's day and ventilator setting changes.
[2021-02-08] VITALS (65 sets, daily range): BP systolic 99–140; BP diastolic 38–73
[2021-02-08 05:17] LABS: HEMATOCRIT 22.4 % (37.0-47.0); HEMOGLOBIN 7.9 gm/dL (12.0-15.0); MCH 31.5 pg (26.0-34.0); MCHC 35.3 g/dL (28.0-37.0); MCV 89.2 fL (80.0-100.0); RBC 2.51 mil/uL (4.20-5.00); RDW 15.3 % (10.5-14.5); WBC 9.5 thou/uL (4.0-11.0)
[2021-02-08 07:03] LABS: ALBUMIN 1.7 g/dL (3.4-5.0); CALCIUM 7.2 mg/dL (8.5-10.1); CREATININE 3.2 mg/dL (0.6-1.0); POTASSIUM 4.1 mmol/L (3.5-5.1); TOTAL BILIRUBIN 0.5 mg/dL (0.2-1.0); TOTAL PROTEIN 4.4 g/dL (6.4-8.2)
--- NOTE | 2021-02-08 08:45 | NUR ---
Consult to Dr. Headley called to office. f
--- NOTE | 2021-02-08 12:20 | NUR ---
Updated granddaughterAnnita on patient condition and plan of care
--- NOTE | 2021-02-08 18:25 | NUR ---
Increased output from chest tube #[address] reported to Dr[address] Pitt. Urine output decreased overall today. Dr. Headley was here to assess patient. Patient requiring increased oxygen demand throughout the day. Currently at 70% FiO2. Plan to possibly trach/PEG tomorrow.
[2021-02-09] VITALS (73 sets, daily range): BP systolic 87–131; BP diastolic 39–61
--- NOTE | 2021-02-09 | NUR ---
TF turned of per order. OGT flushed with 20cc water.
--- NOTE | 2021-02-09 06:34 | NUR ---
0400- pt bathed at this time. when turning pt, dark brown substance began running out of pt's mouth. Pt was then sat up in bed, suctioned via mouth and NGT placed to suction. 0417- Dr. Yoandy MD notified of bathing incident and stated to keep pt's NGT connected to suction and he will take a look at pt's chart. No other new orders given. NGT remains connected to LIS.
[2021-02-09 06:37] LABS: ABSOLUTE NEUTROPHILS 8.4 thou/uL (1.4-8.2); BASOPHILS 0.1 % (0.0-2.0); EOSINOPHILS 0.2 % (0.0-3.0); HEMATOCRIT 20.4 % (37.0-47.0); HEMOGLOBIN 7.1 gm/dL (12.0-15.0); LYMPHOCYTES 2.3 % (24.0-44.0); MCH 31.4 pg (26.0-34.0); MCHC 34.8 g/dL (28.0-37.0); MCV 90.3 fL (80.0-100.0); MONOCYTES 3.2 % (1.0-8.0); PLATELET COUNT 129 thou/uL (150-400); POLYS 94.2 % (36.0-66.0); RBC 2.26 mil/uL (4.20-5.00); RDW 15.5 % (10.5-14.5)
[2021-02-09 06:46] LABS: ALBUMIN 1.4 g/dL (3.4-5.0); CALCIUM 6.9 mg/dL (8.5-10.1); CREATININE 3.4 mg/dL (0.6-1.0); POTASSIUM 4.1 mmol/L (3.5-5.1); TOTAL BILIRUBIN 0.5 mg/dL (0.2-1.0); TOTAL PROTEIN 4.2 g/dL (6.4-8.2)
--- NOTE | 2021-02-09 10:00 | NUR ---
Discussed during am unite round and los. Possible trach/peg today or tomorrow. MD will speak if family if want to proceed.
--- NOTE | 2021-02-09 11:31 | NUR ---
RECEIVED PHONE ORDER READ BACK ORDER FROM , NOTIFY CONSULTED PHYSICIANS AND APPROPERIATE MEMBERS OF THE CARE TEAM, AFTER SPEAKING WITH FAMILY MEMBERS, DECISION MADE TO PROCEED TO COMFORT CARE AFTER FAMILY MEMBER SEEN THE FAMILY. ALL PROCEDURES AND TREATMENT TO HALT. 1132 - RN AT THIS POINT NOTIFIEID, NET PROGRAMMER ANALYST/SET UP MECHANIC COATING MACHINES, SURGERGICAL TEAM.
--- NOTE | 2021-02-14 11:52 | HC ---
[facility] [place] [address] CONSULTATION Name: ETELVINA SIERRA Room #: 237-P [facility] IN ..#: [id number] Admission: 01/16/21 Attend Phys: José Luis Simons MD Discharge: 02/09/21 Date of : 44 Report #: [id number] THIS REPORT FOR: cc: FAM - Family physician unknown FAM - Family physician unknown Benoit Hong MD ~ DATE OF SERVICE: 02/03/2021 We are asked to see the patient by Dr. Zacarias for a persistent right hydropneumothorax. HISTORY OF PRESENT ILLNESS: The patient is a 80-year-old, admitted in transfer from [place] for adult respiratory distress syndrome and hypoxemia with pulmonary dysfunction related to COVID pneumonia. The patient is currently intubated and all of this historical data is from the chart. The patient was admitted with adult respiratory distress syndrome. She has a history of atrial fibrillation. ALLERGIES: None known. No medical allergies found on the chart. PAST MEDICAL HISTORY: From the chart includes hyperlipidemia, hypertension, hypothyroidism and the COVID pneumonia with acute kidney injury. FAMILY HISTORY: I have no reason to differ with what has been dictated previously in the chart. SOCIAL HISTORY: Reveals the patient is a former smoker. REVIEW OF SYSTEMS: Once again was gleaned from the chart and I have no data to refuse any of this. PHYSICAL EXAMINATION: GENERAL: The patient is in bed, on ventilator. VITAL SIGNS: Temperature 35.4, heart rate 78, respiratory rate 27, blood pressure 124/51. HEENT: No scleral icterus. No arcus. NECK: No mass, no bruit. CHEST: Decreased breath sounds, right chest. HEART: Heart rhythm atrial fibrillation. ABDOMEN: Soft, protuberant. EXTREMITIES: Edematous. No clubbing or cyanosis. ASSESSMENT AND PLAN: Chest CT this afternoon revealed right hydropneumothorax. Chest tube was in apical position, but not in communication with the larger air cavity. I placed a new chest tube in the anterolateral chest and obtained [facility] [address] [place] [address] CONSULTATION Name: SIERRAETELVINA Room #: [address] [place] [address]..#: [id number] Admission: 01/16/21 Attend Phys: José Luis Simons MD Discharge: 02/09/21 Date of : 44 Report #: [id number] immediately close to a liter of blood and a gush of air. Chest x-ray showed drainage of the effusion with better, but not perfect reexpansion of the lung, not clear what the etiology of this is, but my suspicion is that it is related to the prior chest tube. In any event, we will leave the patient on positive pressure ventilation with chest tube control of her pleural space and observe for now. Thank you for the consult. <ELECTRONICALLY SIGNED> By: Benoit Hong MD 02/14/21 1152 21 0148 Benoit Hong MD /mili
--- NOTE | 2021-02-14 11:52 | O ---
[facility] [place] [address] OPERATIVE REPORT Name: ETELVINA SIERRA Room #: 237-P [facility] IN M.R.#: [id number] Admission: 01/16/21 Attend Phys: José Luis Simons MD Discharge: 02/09/21 Date of : 44 Report #: [id number] THIS REPORT FOR: cc: FAM - Family physician unknown FAM - Family physician unknown Benoit Hong MD ~ DATE OF SERVICE: 02/03/2021 PREOPERATIVE DIAGNOSIS: Right hemopneumothorax. POSTOPERATIVE DIAGNOSIS: Right hemopneumothorax. OPERATION: Chest tube implant, right side. SURGEON: Benoit Hong MD ANESTHESIA: Local. INDICATIONS: The patient is a 80-year-old on a ventilator, who had a tension pneumothorax several days ago. A chest tube was placed, but there is a persistent pneumothorax and developing pleural effusion and the original chest tube has been draining blood. FINDINGS AND TECHNIQUE: After local anesthesia was established, incision was made in the anterolateral right chest. This was deepened and the chest was entered. A [place] chest tube was placed and it was secured in position. Immediately, there was a gush of air and blood when the tube was placed. Chest x-ray was done and this shows good drainage of the effusion with improvement, but incomplete reexpansion of the lung. I expect this will improve over time. The patient tolerated the procedure well. <ELECTRONICALLY SIGNED> By: Benoit Hong MD 02/14/21 1152 2016 2041 Benoit Hong MD /mili
== END 2021-02-09 19:10 | DRG 870 ==
LOC: ICU 18:25
PROVIDERS: Internal Medicine; Internal Medicine Pulmonary Disease; Nurse Practitioner; Nurse Practitioner Family; Pediatrics; Specialist; ADMIT Hospitalist; ATTEND Hospitalist
PROC: 5A09457 Assistance with Respiratory Ventilation, 24-96 Consecutive Hours, Continuous Positive Airway Pressure (ICD-10-PCS; principal; 2021-01-16)
PROC: 02HV33Z Insertion of Infusion Device into Superior Vena Cava, Percutaneous Approach (ICD-10-PCS; 2021-01-17)
PROC: 5A0935A Assistance with Respiratory Ventilation, Less than 24 Consecutive Hours, High Flow/Velocity Cannula (ICD-10-PCS; 2021-01-18)
PROC: 0BH17EZ Insertion of Endotracheal Airway into Trachea, Via Natural or Artificial Opening (ICD-10-PCS; 2021-01-19)
PROC: 5A09357 Assistance with Respiratory Ventilation, Less than 24 Consecutive Hours, Continuous Positive Airway Pressure (ICD-10-PCS; 2021-01-19)
PROC: 5A1955Z Respiratory Ventilation, Greater than 96 Consecutive Hours (ICD-10-PCS; 2021-01-19)
PROC: 0DJ08ZZ Inspection of Upper Intestinal Tract, Via Natural or Artificial Opening Endoscopic (ICD-10-PCS; 2021-01-30)
PROC: 0W9930Z Drainage of Right Pleural Cavity with Drainage Device, Percutaneous Approach (ICD-10-PCS; 2021-02-03)
PROC: 0BC38ZZ Extirpation of Matter from Right Main Bronchus, Via Natural or Artificial Opening Endoscopic (ICD-10-PCS; 2021-02-03)
PROC: 30233N1 Transfusion of Nonautologous Red Blood Cells into Peripheral Vein, Percutaneous Approach (ICD-10-PCS; 2021-02-03)
DX: A41.89 Other specified sepsis (principal); U07.1 COVID-19; J12.82 Pneumonia due to coronavirus disease 2019; J80 Acute respiratory distress syndrome; R65.21 Severe sepsis with septic shock; J69.0 Pneumonitis due to inhalation of food and vomit; K25.4 Chronic or unspecified gastric ulcer with hemorrhage; E46 Unspecified protein-calorie malnutrition; J94.2 Hemothorax; G93.40 Encephalopathy, unspecified; R04.2 Hemoptysis; J93.83 Other pneumothorax; N17.9 Acute kidney failure, unspecified; I48.91 Unspecified atrial fibrillation; K44.9 Diaphragmatic hernia without obstruction or gangrene; I10 Essential (primary) hypertension; K21.9 Gastro-esophageal reflux disease without esophagitis; F32.9 Major depressive disorder, single episode, unspecified; E03.9 Hypothyroidism, unspecified; J44.9 Chronic obstructive pulmonary disease, unspecified; E78.5 Hyperlipidemia, unspecified; G89.29 Other chronic pain; M54.9 Dorsalgia, unspecified; F41.9 Anxiety disorder, unspecified; M54.5 Low back pain; Z96.651 Presence of right artificial knee joint; M16.0 Bilateral primary osteoarthritis of hip; R65.20 Severe sepsis without septic shock; D64.9 Anemia, unspecified; E16.2 Hypoglycemia, unspecified; D69.6 Thrombocytopenia, unspecified; Z79.01 Long term (current) use of anticoagulants; Z87.891 Personal history of nicotine dependence; Z94.7 Corneal transplant status; Z90.710 Acquired absence of both cervix and uterus; Z98.49 Cataract extraction status, unspecified eye; Z82.49 Family history of ischemic heart disease and other diseases of the circulatory system; Z82.3 Family history of stroke; Z80.8 Family history of malignant neoplasm of other organs or systems; Z87.11 Personal history of peptic ulcer disease; Z51.5 Encounter for palliative care
CPT/HCPCS: 10078; 85076